=== PATIENT | female | born 1945 | race Caucasian/White ===

== ENCOUNTER → 2017-06-30 | Outpatient (CLI) | payer MEDICARE, OTHER ==
[~2017-06-30] MED LIST: ASPERCREME90 GM/TUBE TOP; CALCIUM 600 +1 EA15 PO; COUMADIN ** IA5 MG PO; COUMADIN **IA2.5 MG PO; DIPROSONE CREAM15 GM TOP; LEVOTHROID (SY50 MCG PO; LYRICA100 MG PO; MEGA BIOTIN10000 MCG PO; NON-ASPIRIN EX500 M1 PO; PRILOSEC20 MG PO; THERA-VITE W/ B1 TAB PO; ULTRAM50 MG PO; ZOCOR20 MG PO; ZOLPIDEM TART12.5 MG PO; ZYRTEC10 MG PO
== END | disposition disaster alternative care site (69) ==
LOC: GRAD 09:22
DX: M47.27 Other spondylosis with radiculopathy, lumbosacral region (principal); M51.24 Other intervertebral disc displacement, thoracic region; M47.896 Other spondylosis, lumbar region; M48.06 Spinal stenosis, lumbar region; M43.16 Spondylolisthesis, lumbar region